=== PATIENT | female | born 1960 | race Caucasian/White ===

== ENCOUNTER → 2016-12-07 | Outpatient (REF) | payer BC, MEDICARE ==
[~2016-12-07] MED LIST: /PROM25SU PO; BACT800T5 PO; BENI20TA11 OR; BRIN1TAB3; CLON1TAB; FIORICET OR; HYGROTON OR; LANS30CA; MAGN500T2 OR; NICO21DI4 TD; PREVACID PO; SUMATRIPTAN SUBQ; WELL100T OR; XANA0.5T OR; ZOLO50TA OR; [UNRECOGNIZED DRUG - OTHER] OR; [UNRECOGNIZED DRUG - OTHER] PO; [UNRECOGNIZED DRUG - OTHER] SUBQ; calcium chews PO; chlorthalidone; propanolol PO
== END ==
LOC: M SFHCPLAZ 11:14
PROVIDERS: ATTEND Family Medicine
DX: L57.0 Actinic keratosis (principal)

== ENCOUNTER 2017-01-23 09:13 | Emergency (ER) | payer BC, MEDICARE ==
[~2017-01-23] VITALS: Ht 170.2 cm; Wt 54.5 kg
[~2017-01-23 09:13] MED LIST changes: -BACT800T5 PO; -BRIN1TAB3; -CLON1TAB; -LANS30CA
[2017-01-23] MEDS ORDERED: LANS30CA (09:24)
[2017-01-23] MEDS ORDERED: CLON1TAB PO (09:24)
[2017-01-23] MEDS ORDERED: BRIN1TAB3 (09:24)
[2017-01-23] MEDS ORDERED: ONDANSETRON 4MG/2ML VIAL (J2405) IV ONE ×2 (09:45→10:00)
[2017-01-23] MEDS ORDERED: NS 1,000 ML IV ONE ×2 (09:45→12:30)
[2017-01-23 10:16] LABS: MEAN CORPUSCULAR HEMOGLOBIN 30.6 pg (27.0-33.0); MEAN CORPUSCULAR HGB CONC 34.7 g/dl (32.0-36.5); MEAN CORPUSCULAR VOLUME 88.1 fl (80.0-96.0); RED CELL DISTRIBUTION WIDTH 13.2 % (11.5-14.5)
[2017-01-23 10:38] LABS: ALBUMIN 3.7 GM/DL (3.2-5.2); ALBUMIN/GLOBULIN RATIO 1.12 (1.00-1.93); ALKALINE PHOSPHATASE 72 U/L (45-117); ALT/SGPT 32 U/L (12-78); ANION GAP 8 MEQ/L (8-16); AST/SGOT 54 U/L (15-37); BILIRUBIN,TOTAL 0.5 MG/DL (0.2-1.0); BLOOD UREA NITROGEN 11 MG/DL (7-18); CALCIUM LEVEL 8.5 MG/DL (8.5-10.1); CARBON DIOXIDE LEVEL 23 MEQ/L (21-32); CHLORIDE LEVEL 105 MEQ/L (98-107); CREATININE FOR GFR 0.86 MG/DL (0.55-1.02); GLOMERULAR FILTRATION RATE > 60.0 (>51); GLUCOSE, FASTING 120 MG/DL (70-105); POTASSIUM SERUM 3.4 MEQ/L (3.5-5.1); SODIUM LEVEL 136 MEQ/L (136-145)
[2017-01-23 11:06] LABS: ANISOCYTOSIS 1+; EOSINOPHILS 1 % (0-5)
--- NOTE | 2017-01-23 11:13 | REP ---
REASON: Headache. COMPARISON: 07/24/2011. There is a subtle focal area of decreased density seen in the deep white matter of the left frontal lobe but this is essentially unchanged compared to the prior exam, although better imaged using today's technology compared to the prior exams. The ventricles and sulci are unchanged remaining within normal limits. There is no evidence of any acute intracranial hemorrhagic or nonhemorrhagic event. There is no shift of the midline structures. There are no extra-axial fluid collections. There is no skull fracture. The imaged paranasal sinuses and mastoid air cells are clear. There is no posterior fossa abnormality. IMPRESSION: No evidence of acute disease. Findings as described above. Signed by Geronimo Mack DO 01/23/2017 11:22 A
[2017-01-23] MEDS ORDERED: KETOROLAC 30 MG/ML VIAL (J1885) IV ONE (11:15)
[2017-01-23] MEDS ORDERED: NEOSPORIN TOP OINT 15GM TOP ONE (12:15)
[2017-01-23] MEDS ORDERED: IBUPROFEN 400 MG TAB PO ONE (12:15)
[2017-01-23] MEDS ORDERED: ACETAMINOPHEN 325 MG TAB PO ONE (12:15)
[2017-01-23] MEDS ORDERED: BACTRIM 160MG/800MG DS TAB PO ONE (12:30)
[2017-01-23 13:22] VITALS: BP 143/83
[2017-01-23] MEDS ORDERED: BACT800T5 PO (13:39)
--- NOTE | 2017-01-23 14:16 | REP ---
REASON: Cough. COMPARISON: 07/24/2011 The lung palomo and cardiomediastinal silhouette are unchanged. There are no acute patchy parenchymal opacities or pleural effusions. The heart is not enlarged. Chronic change is seen involving the imaged spine. There are multiple grade 1 and grade 2 upper thoracic vertebral body compression fractures, the age of which cannot be determined by this exam. IMPRESSION: No evidence of acute cardiopulmonary disease but other findings as described above. Signed by Geronimo Mack DO 01/23/2017 02:59 P
--- NOTE | 2017-01-23 14:27 | REP ---
Reason for the noncontrast CT of the abdomen and pelvis is pain across the back. COMPARISON: None. The lung bases are clear. Limited evaluation of the solid intra-abdominal organs and gallbladder show no gross abnormalities. Limited evaluation of the pancreas and adrenal glands show no gross abnormalities or significant findings. There is no nephroureterolithiasis, hydronephrosis, or hydroureter. There are no urinary bladder calcifications. There are pelvic phleboliths. There is no free fluid or free air in the abdomen or pelvis. Limited evaluation of the intra-abdominal and intrapelvic bowel loops and their mesenteries show no gross abnormalities. There is no evidence of free intra-abdominal or intrapelvic fluid. Bone window technique through the examination shows chronic spinal degenerative changes and suspected bony demineralization. IMPRESSION: There is no evidence of acute intra-abdominal or intrapelvic disease with findings and limitations as described above. Signed by Geronimo Mack DO 01/23/2017 02:59 P
--- NOTE | 2017-01-24 12:34 | ECGEPIP ---
Stationary ECG Study [facility] - ED Test Date: 2017-01-23 Pat Name: JAVID FERRELL Department: Room: - Gender: F Academic Associate: JT : 1960 Requested By: JAVIER Byrne PA-C Order Number: [id number] Reading MD: Rebecca Mcmanus Measurements Intervals [place] Rate: 86 P: 38 DE: 120 QRS: 63 QRSD: 85 T: 62 QT: 352 QTc: 423 Interpretive Statements SINUS RHYTHM Electronically Signed On 01-24-2017 12:34:30 EDT by Rebecca Mcmanus
== END 2017-01-23 14:01 | disposition home or self-care (01) ==
LOC: M ED 09:13
DX: N39.0 Urinary tract infection, site not specified (principal); R51 Headache; R56.9 Unspecified convulsions; Q04.9 Congenital malformation of brain, unspecified; K21.9 Gastro-esophageal reflux disease without esophagitis; M79.9 Soft tissue disorder, unspecified; Z79.899 Other long term (current) drug therapy; Z88.8 Allergy status to other drugs, medicaments and biological substances
CPT/HCPCS: 70450; 71020; 74176; 80053; 81001; 83605; 85007; 85027; 93005; 96361; 96374; 96375; 99284; J1885; J2405; J3360

== ENCOUNTER 2017-02-26 09:52 | Emergency (ER) | payer MEDICARE ==
[~2017-02-26] VITALS: Ht 170.2 cm; Wt 54.5 kg
[~2017-02-26 09:52] MED LIST changes: +BACT800T5 PO; +BRIN1TAB3; +CLON1TAB PO; +LANS30CA
[2017-02-26] MEDS ORDERED: CYCL10TA PO (10:08)
[2017-02-26] MEDS ORDERED: diphenhydrAMINE INJ 50MG/ML VIAL (J1200) IV STA (10:59)
[2017-02-26] MEDS ORDERED: ONDANSETRON 4MG/2ML VIAL (J2405) IV ONE (11:00)
[2017-02-26] MEDS ORDERED: NS 500 ML IV ONE (11:00)
[2017-02-26] MEDS ORDERED: KETOROLAC 30 MG/ML VIAL (J1885) IV ONE (11:00)
[2017-02-26] MEDS ORDERED: MORPHINE 4 MG/ML 1ML SYRINGE IV ONE (13:15)
--- NOTE | 2017-02-26 14:16 | REP ---
CT Head without contrast HISTORY: Headache COMPARISON: 01/23/2017 An area of decreased attenuation is present in the periventricular white matter of the left frontal lobe. This represents small-vessel ischemic disease. There is no intraparenchymal hemorrhage, acute infarct, mass or midline shift. The ventricular system is normal in appearance. There is no extra cerebral collection. There is no fracture. The visualized sinuses are clear. IMPRESSION: Minimal small vessel ischemic disease. Signed by Hemant Cabrera MD 02/26/2017 02:07 P
[2017-02-26] MEDS ORDERED: PROMETHAZINE INJ 25 MG/ML VIAL (J2550) IV ONE (14:45)
[2017-02-26] MEDS ORDERED: diphenhydrAMINE INJ 50MG/ML VIAL (J1200) IV ONE (14:45)
[2017-02-26] MEDS ORDERED: PERCOCET 5MG/325MG TAB PO ONE (16:15)
[2017-02-26] MEDS ORDERED: PHEN1SUP6 PR (16:15)
[2017-02-26] MEDS ORDERED: PROMETHAZINE 25 MG TAB PO ONE (16:15)
[2017-02-26 16:28] VITALS: BP 127/73
== END 2017-02-26 16:42 | disposition home or self-care (01) ==
LOC: M ED 09:52
DX: G43.119 Migraine with aura, intractable, without status migrainosus (principal); F41.9 Anxiety disorder, unspecified; F17.200 Nicotine dependence, unspecified, uncomplicated; Z79.899 Other long term (current) drug therapy; Z88.8 Allergy status to other drugs, medicaments and biological substances
CPT/HCPCS: 70450; 96374; 96375; 96376; 99284; J1200; J1885; J2405

== ENCOUNTER → 2017-03-16 | Outpatient (REF) | payer MEDICARE ==
[~2017-03-16] MED LIST changes: +CYCL10TA PO; +PHEN1SUP6 PR
== END ==
LOC: M LAB REF 18:25
PROVIDERS: ATTEND Physician Assistant Medical
DX: R30.0 Dysuria (principal)

== ENCOUNTER 2017-05-20 10:32 | Emergency (ER) | payer MEDICARE ==
[2017-05-20] MEDS: ADACEL/BOOSTRIX VACCINE (DIPHTH/PERTUSS/ACELL/TETANUS)0.5ML SYR (90715) IM (12:05)
[2017-05-20] MEDS ORDERED: KETOROLAC 30 MG/ML VIAL (J1885) IV (13:30)
[2017-05-20] MEDS: KETOROLAC TROMETHAMINE 10 MG TAB PO (13:39)
== END 2017-05-20 14:13 | disposition home or self-care (01) ==
LOC: M ED 10:32
DX: S06.5X3A Traumatic subdural hemorrhage with loss of consciousness of 1 hour to 5 hours 59 minutes, initial encounter (principal); I10 Essential (primary) hypertension; Z87.891 Personal history of nicotine dependence; W01.198A Fall on same level from slipping, tripping and stumbling with subsequent striking against other object, initial encounter; Y92.099 Unspecified place in other non-institutional residence as the place of occurrence of the external cause; Y93.01 Activity, walking, marching and hiking
CPT/HCPCS: 90715

== ENCOUNTER → 2017-08-27 | Outpatient (CLI) | payer MEDICARE ==
[2017-08-27 13:13] LABS: BASO % 0.5 % (0.0-1.0); EOS # 0.2 10^3/uL (0.0-0.50); EOS % 2.4 % (0.0-3.0); HEMATOCRIT 35.1 % (36.0-47.0); HEMOGLOBIN 11.9 g/dl (12.0-15.5); IMMATURE GRANULOCYTE % 0.5 % (0-3.0); LYMPH % 36.9 % (24.0-44.0); MEAN CORPUSCULAR HEMOGLOBIN 30.1 pg (27.0-33.0); MEAN CORPUSCULAR HGB CONC 33.9 g/dl (32.0-36.5); MEAN CORPUSCULAR VOLUME 88.6 fl (80.0-96.0); MONO # 0.9 10^3/uL (0.0-0.8); MONO % 11.3 % (0.0-5.0); NEUTROPHILS # 3.9 10^3/uL (1.8-7.7); NEUTROPHILS % 48.4 % (36.0-66.0); PLATELET COUNT, AUTOMATED 279 10^3/uL (150-450); RED BLOOD COUNT 3.96 10^6/uL (4.00-5.40); RED CELL DISTRIBUTION WIDTH 14.3 % (11.5-14.5); WHITE BLOOD COUNT 8.1 10^3/uL (4.0-10.0)
[2017-08-27 13:24] LABS: INR 0.91; PROTHROMBIN TIME 12.3 SECONDS (12.4-14.5)
[2017-08-27 13:25] LABS: PARTIAL THROMBOPLASTIN TIME 32.8 SECONDS (26.8-37.9)
[2017-08-27 13:36] LABS: ALBUMIN 3.7 GM/DL (3.2-5.2); ALBUMIN/GLOBULIN RATIO 1.28 (1.00-1.93); ALKALINE PHOSPHATASE 110 U/L (45-117); ALT/SGPT 108 U/L (12-78); ANION GAP 5 MEQ/L (8-16); AST/SGOT 67 U/L (7-37); BILIRUBIN,TOTAL 0.3 MG/DL (0.2-1.0); BLOOD UREA NITROGEN 12 MG/DL (7-18); CALCIUM LEVEL 8.7 MG/DL (8.5-10.1); CARBON DIOXIDE LEVEL 30 MEQ/L (21-32); CHLORIDE LEVEL 108 MEQ/L (98-107); CREATININE FOR GFR 0.93 MG/DL (0.55-1.30); GLOMERULAR FILTRATION RATE > 60.0 (>51); GLUCOSE, FASTING 86 MG/DL (70-100); NT-PRO BNP 297 PG/ML (<125); POTASSIUM SERUM 4.5 MEQ/L (3.5-5.1); SODIUM LEVEL 143 MEQ/L (136-145); TOTAL PROTEIN 6.6 GM/DL (6.4-8.2)
[2017-08-29 00:06] LABS: Lyme Disease IgG/IgM Antibodie <0.91 ISR (0.00-0.90); Lyme Disease IgM Ab Quantitati <0.80 index (0.00-0.79)
== END ==
LOC: M ADAMS 09:47
DX: R60.9 Edema, unspecified (principal); L30.9 Dermatitis, unspecified
CPT/HCPCS: 80053

== ENCOUNTER 2017-08-28 17:52 | Emergency (ER) | payer MEDICARE ==
[2017-08-28] MEDS: ONDANSETRON 4MG/2ML VIAL (J2405) IV (19:32)
[2017-08-28] MEDS: MORPHINE 4 MG/ML 1ML VIAL/SYRINGE (J2270) IV (19:32)
[2017-08-28] MEDS: NS 1,000 ML IV (19:32)
[2017-08-28 19:37] LABS: BASO % 0.5 % (0.0-1.0); EOS # 0.1 10^3/uL (0.0-0.50); EOS % 1.9 % (0.0-3.0); HEMATOCRIT 32.6 % (36.0-47.0); HEMOGLOBIN 11.2 g/dl (12.0-15.5); IMMATURE GRANULOCYTE % 0.3 % (0-3.0); LYMPH # 2.9 10^3/uL (1.5-4.5); LYMPH % 38.8 % (24.0-44.0); MEAN CORPUSCULAR HEMOGLOBIN 30.2 pg (27.0-33.0); MEAN CORPUSCULAR HGB CONC 34.4 g/dl (32.0-36.5); MEAN CORPUSCULAR VOLUME 87.9 fl (80.0-96.0); MONO # 0.8 10^3/uL (0.0-0.8); MONO % 10.7 % (0.0-5.0); NEUTROPHILS # 3.6 10^3/uL (1.8-7.7); NEUTROPHILS % 47.8 % (36.0-66.0); PLATELET COUNT, AUTOMATED 270 10^3/uL (150-450); RED BLOOD COUNT 3.71 10^6/uL (4.00-5.40); RED CELL DISTRIBUTION WIDTH 13.9 % (11.5-14.5); WHITE BLOOD COUNT 7.5 10^3/uL (4.0-10.0)
[2017-08-28 19:51] LABS: INR 0.99; PROTHROMBIN TIME 13.2 SECONDS (12.4-14.5)
[2017-08-28 19:52] LABS: PARTIAL THROMBOPLASTIN TIME 31.6 SECONDS (26.8-37.9)
[2017-08-28 20:02] LABS: ALBUMIN 3.5 GM/DL (3.2-5.2); ALBUMIN/GLOBULIN RATIO 1.25 (1.00-1.93); ALKALINE PHOSPHATASE 111 U/L (45-117); ALT/SGPT 76 U/L (12-78); ANION GAP 5 MEQ/L (8-16); AST/SGOT 43 U/L (7-37); BILIRUBIN,DIRECT < 0.1 MG/DL (0.0-0.2); BILIRUBIN,TOTAL 0.2 MG/DL (0.2-1.0); BLOOD UREA NITROGEN 11 MG/DL (7-18); C REACTIVE PROTEIN QUANTITATIV 0.59 MG/DL (0.00-0.30); CALCIUM LEVEL 8.1 MG/DL (8.5-10.1); CARBON DIOXIDE LEVEL 29 MEQ/L (21-32); CHLORIDE LEVEL 108 MEQ/L (98-107); CPK CREATINE PHOSPHOKINASE 369 U/L (26-192); GLOMERULAR FILTRATION RATE > 60.0 (>51); GLUCOSE, FASTING 67 MG/DL (70-100); SODIUM LEVEL 142 MEQ/L (136-145); TOTAL PROTEIN 6.3 GM/DL (6.4-8.2)
[2017-08-28 20:04] LABS: ERYTHROCYTE SEDIMENTATION RATE 12 mm/hr (0-30)
[2017-08-28] MEDS: NORCO 5/325MG TABLET (BULK FOR ED) PO (21:13)
== END 2017-08-28 21:17 | disposition home or self-care (01) ==
LOC: M ED 17:52
DX: R23.3 Spontaneous ecchymoses (principal); I10 Essential (primary) hypertension; K21.9 Gastro-esophageal reflux disease without esophagitis; F41.9 Anxiety disorder, unspecified; F17.210 Nicotine dependence, cigarettes, uncomplicated; G43.909 Migraine, unspecified, not intractable, without status migrainosus; R56.9 Unspecified convulsions; Z98.890 Other specified postprocedural states; Z79.899 Other long term (current) drug therapy
CPT/HCPCS: J2270

== ENCOUNTER 2017-08-30 10:04 | Emergency (ER) | payer MEDICARE ==
[2017-08-30 11:42] LABS: BASO % 0.4 % (0.0-1.0); EOS # 0.2 10^3/uL (0.0-0.50); EOS % 2.4 % (0.0-3.0); HEMATOCRIT 34.6 % (36.0-47.0); HEMOGLOBIN 11.6 g/dl (12.0-15.5); IMMATURE GRANULOCYTE % 0.1 % (0-3.0); LYMPH # 3.4 10^3/uL (1.5-4.5); LYMPH % 48.4 % (24.0-44.0); MEAN CORPUSCULAR HEMOGLOBIN 30.1 pg (27.0-33.0); MEAN CORPUSCULAR HGB CONC 33.5 g/dl (32.0-36.5); MEAN CORPUSCULAR VOLUME 89.9 fl (80.0-96.0); MONO # 0.9 10^3/uL (0.0-0.8); MONO % 12.2 % (0.0-5.0); NEUTROPHILS # 2.6 10^3/uL (1.8-7.7); NEUTROPHILS % 36.5 % (36.0-66.0); PLATELET COUNT, AUTOMATED 294 10^3/uL (150-450); RED BLOOD COUNT 3.85 10^6/uL (4.00-5.40); RED CELL DISTRIBUTION WIDTH 14.2 % (11.5-14.5); WHITE BLOOD COUNT 7.1 10^3/uL (4.0-10.0)
[2017-08-30 11:52] LABS: INR 0.88
[2017-08-30 12:12] LABS: ALBUMIN 3.6 GM/DL (3.2-5.2); ALKALINE PHOSPHATASE 130 U/L (45-117); ALT/SGPT 64 U/L (12-78); ANION GAP 4 MEQ/L (8-16); AST/SGOT 46 U/L (7-37); BILIRUBIN,DIRECT < 0.1 MG/DL (0.0-0.2); BILIRUBIN,TOTAL 0.2 MG/DL (0.2-1.0); BLOOD UREA NITROGEN 7 MG/DL (7-18); CALCIUM LEVEL 8.1 MG/DL (8.5-10.1); CARBON DIOXIDE LEVEL 30 MEQ/L (21-32); CHLORIDE LEVEL 108 MEQ/L (98-107); CPK CREATINE PHOSPHOKINASE 390 U/L (26-192); CREATININE FOR GFR 0.84 MG/DL (0.55-1.30); GLOMERULAR FILTRATION RATE > 60.0 (>51); GLUCOSE, FASTING 57 MG/DL (70-100); POTASSIUM SERUM 4.1 MEQ/L (3.5-5.1); SODIUM LEVEL 142 MEQ/L (136-145); TOTAL PROTEIN 6.6 GM/DL (6.4-8.2)
[2017-08-30 12:15] LABS: ERYTHROCYTE SEDIMENTATION RATE 17 mm/hr (0-30)
== END 2017-08-30 13:14 | disposition home or self-care (01) ==
LOC: M ED 10:04
DX: R23.3 Spontaneous ecchymoses (principal); M79.89 Other specified soft tissue disorders; I10 Essential (primary) hypertension; G40.909 Epilepsy, unspecified, not intractable, without status epilepticus; G43.909 Migraine, unspecified, not intractable, without status migrainosus; F31.9 Bipolar disorder, unspecified; Z88.8 Allergy status to other drugs, medicaments and biological substances; Z88.1 Allergy status to other antibiotic agents; Z79.899 Other long term (current) drug therapy
CPT/HCPCS: 93970

== ENCOUNTER 2017-09-02 00:25 | Emergency (ER) | payer MEDICARE ==
[2017-09-02] MEDS: ACETAMINOPHEN TAB 650MG DOSE (2X325MG) PO ×2 (02:20)
== END 2017-09-02 02:37 | disposition home or self-care (01) ==
LOC: M ED 00:25
DX: R21 Rash and other nonspecific skin eruption (principal); F31.9 Bipolar disorder, unspecified; G43.909 Migraine, unspecified, not intractable, without status migrainosus; F17.200 Nicotine dependence, unspecified, uncomplicated; Z79.899 Other long term (current) drug therapy; Z88.8 Allergy status to other drugs, medicaments and biological substances
CPT/HCPCS: 36415; G0463

== ENCOUNTER → 2018-04-21 | Outpatient (REF) | payer MEDICARE ==
[~2018-04-21] MED LIST changes: +ALLE180T33 PO; +BUPR300T34 PO; -CLON1TAB PO; +CLON1TAB8 PO; +FISH100049 PO; +LATU40TA PO; +MULT1TAB18 PO; +NORCOTAB PO; +ONDA8TAB7 PO; +VITA500046 PO; +ZOLM2.5T2 PO
[2018-04-21 18:54] LABS: BASO # 0.1 10^3/uL (0.0-0.2); BASO % 0.5 % (0.0-1.0); EOS # 0.1 10^3/uL (0.0-0.50); EOS % 0.3 % (0.0-3.0); HEMATOCRIT 41.1 % (36.0-47.0); HEMOGLOBIN 14.3 g/dl (12.0-15.5); LYMPH # 2.8 10^3/uL (1.5-4.5); LYMPH % 18.6 % (24.0-44.0); MEAN CORPUSCULAR HEMOGLOBIN 30.1 pg (27.0-33.0); MEAN CORPUSCULAR HGB CONC 34.8 g/dl (32.0-36.5); MEAN CORPUSCULAR VOLUME 86.5 fl (80.0-96.0); MONO # 1.4 10^3/uL (0.0-0.8); MONO % 9.1 % (0.0-5.0); NEUTROPHILS # 10.8 10^3/uL (1.8-7.7); NEUTROPHILS % 70.9 % (36.0-66.0); PLATELET COUNT, AUTOMATED 448 10^3/uL (150-450); RED BLOOD COUNT 4.75 10^6/uL (4.00-5.40); WHITE BLOOD COUNT 15.3 10^3/uL (4.0-10.0)
[2018-04-21 19:17] LABS: ALBUMIN 3.9 GM/DL (3.2-5.2); BILIRUBIN,TOTAL 0.3 MG/DL (0.2-1.0); CALCIUM LEVEL 8.9 MG/DL (8.5-10.1); CREATININE FOR GFR 1.23 MG/DL (0.55-1.30); GLOMERULAR FILTRATION RATE 47.7 (>51); TOTAL PROTEIN 6.9 GM/DL (6.4-8.2)
== END ==
LOC: M SFHCPLAZ 15:03
PROVIDERS: ATTEND Family Medicine
DX: R19.7 Diarrhea, unspecified (principal); E87.6 Hypokalemia

== ENCOUNTER → 2018-04-26 | Outpatient (REF) | payer MEDICARE ==
[2018-04-26 18:20] LABS: HEMATOCRIT 36.6 % (36.0-47.0); HEMOGLOBIN 12.7 g/dl (12.0-15.5); MEAN CORPUSCULAR HEMOGLOBIN 30.6 pg (27.0-33.0); MEAN CORPUSCULAR HGB CONC 34.7 g/dl (32.0-36.5); MEAN CORPUSCULAR VOLUME 88.2 fl (80.0-96.0); PLATELET COUNT, AUTOMATED 386 10^3/uL (150-450); RED BLOOD COUNT 4.15 10^6/uL (4.00-5.40); WHITE BLOOD COUNT 7.8 10^3/uL (4.0-10.0)
[2018-04-26 18:36] LABS: BLOOD UREA NITROGEN 6 MG/DL (7-18); C REACTIVE PROTEIN QUANTITATIV 2.24 MG/DL (0.00-0.30); CALCIUM LEVEL 8.6 MG/DL (8.5-10.1); CARBON DIOXIDE LEVEL 25 MEQ/L (21-32); CHLORIDE LEVEL 105 MEQ/L (98-107); CREATININE FOR GFR 0.87 MG/DL (0.55-1.30); GLOMERULAR FILTRATION RATE > 60.0 (>51); GLUCOSE, FASTING 86 MG/DL (70-100); POTASSIUM SERUM 3.3 MEQ/L (3.5-5.1); SODIUM LEVEL 138 MEQ/L (136-145)
[2018-04-26 19:08] LABS: ERYTHROCYTE SEDIMENTATION RATE 16 mm/hr (0-30)
== END ==
LOC: M SFHCPLAZ 14:37
PROVIDERS: ATTEND Family Medicine
DX: R19.7 Diarrhea, unspecified (principal); N17.9 Acute kidney failure, unspecified

== ENCOUNTER → 2018-05-06 | Outpatient (CLI) | payer MEDICARE ==
--- NOTE | 2018-05-06 20:55 | REP ---
RIGHT KNEE, COMPLETE: 05/06/2018. Clinical history: Contusion right knee. Fell after tripping over her dog. Findings: Five views are provided. Tibial spines with small spurs and with minimal spurs medial and lateral joint margins as well as patellar articular margins. No joint space narrowing of the medial or lateral compartments. There is slight narrowing of the medial facet of the patellofemoral joint. No patellar subluxation or dislocation and no patellar fracture. Bone island in the medial femoral condyle. A fabella posterior to the knee is seen. I do not see definite suprapatellar effusion, fracture, avulsion or other acute finding. Impression: 1. Mild tricompartment osteoarthritis without fracture, avulsion, subluxation, joint effusion or loose body. Electronically Signed by Jason Alfred MD 05/07/2018 01:17 P
== END ==
LOC: M ADAMS 17:11
PROVIDERS: ATTEND Physician Assistant
DX: M17.11 Unilateral primary osteoarthritis, right knee (principal); S80.01XA Contusion of right knee, initial encounter; X58.XXXA Exposure to other specified factors, initial encounter; Y92.9 Unspecified place or not applicable

== ENCOUNTER → 2018-05-24 | Outpatient (REF) | payer MEDICARE ==
[2018-05-24 13:43] LABS: HEMATOCRIT 34.9 % (36.0-47.0); HEMOGLOBIN 11.7 g/dl (12.0-15.5); MEAN CORPUSCULAR HEMOGLOBIN 30.9 pg (27.0-33.0); MEAN CORPUSCULAR HGB CONC 33.5 g/dl (32.0-36.5); MEAN CORPUSCULAR VOLUME 92.1 fl (80.0-96.0); PLATELET COUNT, AUTOMATED 326 10^3/uL (150-450); RED BLOOD COUNT 3.79 10^6/uL (4.00-5.40); WHITE BLOOD COUNT 11.4 10^3/uL (4.0-10.0)
[2018-05-24 14:16] LABS: ALT/SGPT 25 U/L (12-78); BLOOD UREA NITROGEN 11 MG/DL (7-18); CALCIUM LEVEL 8.2 MG/DL (8.5-10.1); CARBON DIOXIDE LEVEL 24 MEQ/L (21-32); CHLORIDE LEVEL 109 MEQ/L (98-107); CREATININE FOR GFR 0.85 MG/DL (0.55-1.30); GLOMERULAR FILTRATION RATE > 60.0 (>51); GLUCOSE, FASTING 88 MG/DL (70-100); POTASSIUM SERUM 4.5 MEQ/L (3.5-5.1); SODIUM LEVEL 142 MEQ/L (136-145)
[2018-05-24 14:17] LABS: ALBUMIN 3.8 GM/DL (3.2-5.2); BILIRUBIN,TOTAL 0.3 MG/DL (0.2-1.0); TOTAL PROTEIN 6.2 GM/DL (6.4-8.2)
== END ==
LOC: M SFHCPLAZ 11:46
PROVIDERS: ATTEND Family Medicine
DX: G45.4 Transient global amnesia (principal); R41.0 Disorientation, unspecified

== ENCOUNTER 2018-05-28 16:10 | Emergency (ER) | payer MEDICARE ==
[~2018-05-28] VITALS: Ht 167.6 cm; Wt 54.5 kg
[2018-05-28] MEDS ORDERED: PREG50CA (16:21)
[2018-05-28] MEDS ORDERED: BENA25CA4 PO (16:21)
[2018-05-28] MEDS ORDERED: BRIN1TAB3 (16:21)
[2018-05-28] MEDS ORDERED: CYCL10TA (16:21)
[2018-05-28] MEDS ORDERED: POTA1TAB23 (16:21)
[2018-05-28] MEDS ORDERED: IBUP80TA PO (18:52)
[2018-05-28] MEDS ORDERED: GABA-845 PO (18:52)
[2018-05-28] MEDS ORDERED: ENDO5TAB PO (18:53)
[2018-05-28] MEDS ORDERED: GABAPENTIN 300 MG CAP PO ONE (19:00)
[2018-05-28 19:07] VITALS: BP 134/78
== END 2018-05-28 19:19 | disposition home or self-care (01) ==
LOC: M ED 16:10
DX: R10.2 Pelvic and perineal pain (principal); M79.651 Pain in right thigh; M79.652 Pain in left thigh; M79.661 Pain in right lower leg; M79.662 Pain in left lower leg; M79.671 Pain in right foot; M79.672 Pain in left foot; I10 Essential (primary) hypertension; G43.909 Migraine, unspecified, not intractable, without status migrainosus; K21.9 Gastro-esophageal reflux disease without esophagitis; F31.9 Bipolar disorder, unspecified; Z87.891 Personal history of nicotine dependence; Z82.0 Family history of epilepsy and other diseases of the nervous system; Z88.1 Allergy status to other antibiotic agents; Z88.8 Allergy status to other drugs, medicaments and biological substances; Z79.899 Other long term (current) drug therapy

== ENCOUNTER → 2018-06-04 | Outpatient (CLI) | payer MEDICARE ==
[~2018-06-04] MED LIST changes: +BENA25CA4 PO; +CYCL10TA; +ENDO5TAB PO; +GABA-845 PO; +IBUP80TA PO; +POTA1TAB23; +PREG50CA
--- NOTE | 2018-06-06 07:44 | REP ---
MRI BRAIN WITHOUT CONTRAST: 06/04/2018. Comparison: MRI brain 07/25/2011; CT brain 05/20/2017, 02/26/2017. Clinical history: Transient global amnesia. Confusion. 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 Technique: Sagittal T1 with axial T1, T2, FLAIR, gradient-echo and diffusion weighted images with ADC mapping sequence. Findings: Lateral ventricles are midline, symmetric and without dilatation or displacement. There is no significant atrophy or sulcal prominence. Third and fourth ventricles were unremarkable. There is some periatrial white matter change on the left and adjacent to the frontal horn of the left lateral ventricle is a 13 mm zone of hyperintense T2 and FLAIR signal. This is not reliably seen on the previous CT. There are a few other periventricular deep central hyperintense T2 signal foci in both hemispheres, much smaller. There is a small hyperintense focus on T2 in the left basal ganglia, hypointense on T1 suggesting a small dilated perivascular space of Virchow or tiny old lacunar infarct. This is visible on the previous CT, stable. On the diffusion weighted images and ADC mapping sequences, there is no evidence of restricted water diffusion or acute ischemia in this region or elsewhere in the brain. I do not see evidence of hemorrhage on the gradient echo sequence. Cortical stripe is preserved. There is no vascular territory infarct, hemorrhage, mass or mass effect. No acute extra-axial fluid collection. Slight prominence of the subarachnoid space in the frontal pole left more than right. No mass or mass effect. Brainstem and cerebellum intact. The seventh/eighth cranial nerve complexes symmetric and normal. Visualized mastoids and sinuses are clear except for a few small ethmoid air cells with some mucosal thickening. Orbits and contents symmetric and normal. The corpus callosum, optic chiasm and pituitary were intact. There is some cerebellar tonsillar ectopia as on previous MRI of 07/25/2011 and unchanged. Orbits and contents symmetric and normal. Impression: 1. Some mild small vessel ischemic changes similar to previous study with no evidence of acute infarct, hemorrhage, restricted water diffusion or acute ischemia on diffusion weighted images. 2. No evidence of intracranial hemorrhage. Mild prominence of the subarachnoid space adjacent the frontal poles left greater than right, unchanged. 3. Stable exam without acute finding. Electronically Signed by Jason Alfred MD 06/06/2018 09:24 A
== END ==
LOC: M RAD 14:20
PROVIDERS: ATTEND Family Medicine
DX: G45.4 Transient global amnesia (principal); R41.0 Disorientation, unspecified

== ENCOUNTER 2018-06-06 11:09 | Emergency (ER) | payer MEDICARE ==
[~2018-06-06] VITALS: Ht 167.6 cm; Wt 64.9 kg
[2018-06-06 13:52] VITALS: BP 117/70
== END 2018-06-06 13:59 | disposition home or self-care (01) ==
LOC: M ED 11:09
DX: R60.0 Localized edema (principal); T42.6X5A Adverse effect of other antiepileptic and sedative-hypnotic drugs, initial encounter; I10 Essential (primary) hypertension; F32.9 Major depressive disorder, single episode, unspecified; F41.9 Anxiety disorder, unspecified; G43.909 Migraine, unspecified, not intractable, without status migrainosus; K21.9 Gastro-esophageal reflux disease without esophagitis; F17.200 Nicotine dependence, unspecified, uncomplicated; Z88.8 Allergy status to other drugs, medicaments and biological substances; Z88.1 Allergy status to other antibiotic agents; Z79.899 Other long term (current) drug therapy

== ENCOUNTER → 2018-06-07 | Outpatient (REF) | payer MEDICARE ==
[2018-06-07 17:02] LABS: IONIZED CALCIUM 4.5 MG/DL (4.5-5.3)
[2018-06-07 17:20] LABS: MAGNESIUM LEVEL 2.2 MG/DL (1.8-2.4); PHOSPHORUS LEVEL 3.7 MG/DL (2.5-4.9)
[2018-06-07 17:21] LABS: ALBUMIN 3.4 GM/DL (3.2-5.2); ALT/SGPT 30 U/L (12-78); BILIRUBIN,TOTAL 0.2 MG/DL (0.2-1.0); BLOOD UREA NITROGEN 7 MG/DL (7-18); CALCIUM LEVEL 8.1 MG/DL (8.5-10.1); CARBON DIOXIDE LEVEL 27 MEQ/L (21-32); CHLORIDE LEVEL 106 MEQ/L (98-107); CPK CREATINE PHOSPHOKINASE 582 U/L (26-192); CREATININE FOR GFR 0.89 MG/DL (0.55-1.30); GLOMERULAR FILTRATION RATE > 60.0 (>51); GLUCOSE, FASTING 100 MG/DL (70-100); POTASSIUM SERUM 4.6 MEQ/L (3.5-5.1); SODIUM LEVEL 140 MEQ/L (136-145)
[2018-06-07 17:22] LABS: BASO % 0.5 % (0.0-1.0); EOS # 0.4 10^3/uL (0.0-0.50); EOS % 5.1 % (0.0-3.0); HEMATOCRIT 30.7 % (36.0-47.0); HEMOGLOBIN 9.9 g/dl (12.0-15.5); LYMPH # 2.9 10^3/uL (1.5-4.5); LYMPH % 38.3 % (24.0-44.0); MEAN CORPUSCULAR HEMOGLOBIN 30.6 pg (27.0-33.0); MEAN CORPUSCULAR HGB CONC 32.2 g/dl (32.0-36.5); MEAN CORPUSCULAR VOLUME 94.8 fl (80.0-96.0); MONO # 0.8 10^3/uL (0.0-0.8); MONO % 10.7 % (0.0-5.0); NEUTROPHILS # 3.4 10^3/uL (1.8-7.7); NEUTROPHILS % 45.1 % (36.0-66.0); PLATELET COUNT, AUTOMATED 325 10^3/uL (150-450); RED BLOOD COUNT 3.24 10^6/uL (4.00-5.40); WHITE BLOOD COUNT 7.5 10^3/uL (4.0-10.0)
[2018-06-07 17:30] LABS: PTH INTACT 48.7 PG/ML (18.5-88.0)
== END ==
LOC: M SFHCPLAZ 15:01
PROVIDERS: ATTEND Family Medicine
DX: E83.51 Hypocalcemia (principal); R25.1 Tremor, unspecified

== ENCOUNTER → 2018-06-30 | Outpatient (CLI) | payer MEDICARE ==
--- NOTE | 2018-06-30 18:25 | REPMRS ---
Patient History The patient states she had a clinical breast exam in 06/2018. Patient is postmenopausal and is nulliparous. Family history of breast cancer at age 50 or over in maternal grandmother. Retro-pectoral implants in both breasts, 2000. Took estrogen for 7 months. Digital Woman Screen Mammo: June 30, 2018 - Exam #: [id number] Bilateral MLO, CC, CCID, and MLOID view(s) were taken. Technologist: Tania Pearson, Technologist Prior study comparison: July 04, 2015, digital woman screen mammo performed at [facility]. February 28, 2014, digital woman screen mammo performed at [facility]. FINDINGS: There are scattered fibroglandular densities. The visualized implant margins are smooth. Breast parenchymal density pattern is essentially symmetric. No dominant mass, clustered microcalcification, or archetectural distortion is evident on either side. 3-D tomosynthesis shows no additional findings. No significant changes when compared with prior studies. Assessment: BI-RADS/ACR category 2 mammogram. Benign Findings. Recommendation Routine screening mammogram of both breasts in 1 year (for women over age 40). Electronically Signed By: Jason Alfred MD 06/30/18 [id number]
== END ==
LOC: M WHC 14:25
PROVIDERS: ATTEND Family Medicine
DX: Z12.31 Encounter for screening mammogram for malignant neoplasm of breast (principal); Z78.0 Asymptomatic menopausal state; Z80.3 Family history of malignant neoplasm of breast; Z98.890 Other specified postprocedural states; Z92.23 Personal history of estrogen therapy

== ENCOUNTER → 2018-06-30 | Outpatient (REF) | payer MEDICARE ==
[2018-07-04 14:21] LABS: HPV HYBRID CAPTURE II Negative (Negative)
== END ==
LOC: M SFHCWAGY 14:44
PROVIDERS: ATTEND Nurse Practitioner Women's Health
DX: Z12.4 Encounter for screening for malignant neoplasm of cervix (principal)
CPT/HCPCS: 87624; G0123

== ENCOUNTER → 2018-07-10 | Outpatient (CLI) | payer MEDICARE ==
--- NOTE | 2018-07-11 07:13 | REP ---
LEFT ANKLE, FOUR VIEWS: Four views of the left ankle are performed. There is an oblique fracture of the distal fibula with adjacent soft-tissue swelling. There is lateral displacement of the distal fracture fragment. No other acute fracture or dislocation is seen. The ankle mortise appears anatomic. Electronically Signed by Brandt Perea MD 07/11/2018 09:21 A
== END ==
LOC: M ADAMS 11:12
PROVIDERS: ATTEND Physician Assistant Medical
DX: S82.432A Displaced oblique fracture of shaft of left fibula, initial encounter for closed fracture (principal); Y92.9 Unspecified place or not applicable; Y93.9 Activity, unspecified; Y99.9 Unspecified external cause status; X58.XXXA Exposure to other specified factors, initial encounter

== ENCOUNTER → 2018-08-23 | Outpatient (REF) | payer MEDICARE ==
[~2018-08-23] MED LIST changes: +HYDR-3715 PO; -NORCOTAB PO
[2018-08-23 13:37] LABS: BLOOD UREA NITROGEN 24 MG/DL (7-18); CALCIUM LEVEL 9.3 MG/DL (8.5-10.1); CARBON DIOXIDE LEVEL 26 MEQ/L (21-32); CHLORIDE LEVEL 107 MEQ/L (98-107); GLOMERULAR FILTRATION RATE > 60.0 (>51); GLUCOSE, FASTING 89 MG/DL (70-100); MAGNESIUM LEVEL 2.1 MG/DL (1.8-2.4); POTASSIUM SERUM 4.8 MEQ/L (3.5-5.1); SODIUM LEVEL 139 MEQ/L (136-145)
== END ==
LOC: M SFHCPLAZ 10:35
PROVIDERS: ATTEND Family Medicine
DX: E87.6 Hypokalemia (principal); E83.42 Hypomagnesemia

== ENCOUNTER → 2018-08-25 | Outpatient (CLI) | payer MEDICARE ==
[~2018-08-25] MED LIST changes: +CLON0.5T17 PO; +CLON0.5T8 PO; +NORC1TAB7 PO; +PREV30TA3 PO; +TRAZ-160 PO
--- NOTE | 2018-08-26 11:37 | REP ---
REASON: History of distal fibular fracture. COMPARISON: Pre-casted exam of 07/10/2018. The previously described distal fibular fracture is obscured by overlying casting material. The alignment appears near anatomical and essentially unchanged. This limited examination shows no acute fracture. Electronically Signed by Geronimo Mack DO 08/26/2018 02:41 P
--- NOTE | 2018-08-26 15:09 | REP ---
REASON FOR EXAM: History of lateral malleolar fracture. Not all of the foot was radiographed on all views and there is overlying casting material which obscures the bony detail to such a degree a fracture could be obscured. On the images provided there is no gross fracture involving the foot. There is a distal fibular fracture which was diagnosed on 07/10/2018. IMPRESSION: Findings and limitations as described above. Electronically Signed by Greonimo Mack DO 08/26/2018 03:21 P
== END ==
LOC: M ADAMS 14:46
PROVIDERS: ATTEND Physician Assistant
DX: S82.62XD Displaced fracture of lateral malleolus of left fibula, subsequent encounter for closed fracture with routine healing (principal); X58.XXXD Exposure to other specified factors, subsequent encounter

== ENCOUNTER 2018-08-28 12:22 | Emergency (ER) | payer MEDICARE ==
[~2018-08-28] VITALS: Ht 167.6 cm; Wt 69.9 kg
[~2018-08-28 12:22] MED LIST changes: -CLON0.5T17 PO; -CLON0.5T8 PO; -NORC1TAB7 PO; -PREV30TA3 PO; -TRAZ-160 PO
[2018-08-28] MEDS ORDERED: NORCO, ANEXSIA 5/325MG TABLET (HYDROcodone/ACETAMINOPHEN) PO ONE (12:45)
[2018-08-28] MEDS ORDERED: KETOROLAC 60 MG/2 ML VIAL (J1885) IM ONE (12:45)
[2018-08-28] MEDS ORDERED: CLON0.5T17 PO (12:50)
[2018-08-28] MEDS ORDERED: TRAZ-160 PO (12:50)
[2018-08-28] MEDS ORDERED: PREV30TA3 PO (12:50)
[2018-08-28] MEDS ORDERED: CLON0.5T8 PO (12:50)
[2018-08-28] MEDS ORDERED: NORC1TAB7 PO (13:54)
--- NOTE | 2018-08-28 13:56 | REP ---
LEFT ANKLE SERIES: FOUR VIEWS. HISTORY: Previous fracture lateral malleolus. Pain in the medial malleolus. New fall. Comparison radiographs August 25, 2018. FINDINGS: Today's radiographs taken through cast material show an obliquely oriented distal fibular fracture, unchanged in position from the prior study. There is no evidence of tibial fracture. Fine bone detail is obscured by cast material. IMPRESSION: No change from comparison study August 25, 2018. Distal fibular fracture. Electronically Signed by Conrado Schwarz MD 08/28/2018 02:46 P
[2018-08-28 14:03] VITALS: BP 108/67
== END 2018-08-28 14:18 | disposition home or self-care (01) ==
LOC: M ED 12:22
DX: S82.432D Displaced oblique fracture of shaft of left fibula, subsequent encounter for closed fracture with routine healing (principal); W22.8XXA Striking against or struck by other objects, initial encounter; Y92.9 Unspecified place or not applicable; Y93.9 Activity, unspecified; Y99.9 Unspecified external cause status; E78.5 Hyperlipidemia, unspecified; G43.909 Migraine, unspecified, not intractable, without status migrainosus; Z72.0 Tobacco use; Z79.899 Other long term (current) drug therapy; Z88.8 Allergy status to other drugs, medicaments and biological substances
CPT/HCPCS: 73610; 96372; 99283; J1885

== ENCOUNTER → 2018-12-21 | Outpatient (REF) | payer MEDICARE ==
[~2018-12-21] MED LIST changes: +CLON0.5T17 PO; +CLON0.5T8 PO; +NORC1TAB7 PO; +PREV30TA3 PO; +TRAZ-252 PO
[2018-12-21 16:32] LABS: BASO # 0.1 10^3/uL (0.0-0.2); BASO % 0.7 % (0.0-1.0); EOS # 0.1 10^3/uL (0.0-0.5); EOS % 0.9 % (0.0-3.0); HEMATOCRIT 41.3 % (36.0-47.0); HEMOGLOBIN 13.6 g/dl (12.0-15.5); LYMPH # 3.3 10^3/uL (1.5-5.0); LYMPH % 31.7 % (24.0-44.0); MEAN CORPUSCULAR HEMOGLOBIN 30.2 pg (27.0-33.0); MEAN CORPUSCULAR HGB CONC 32.9 g/dl (32.0-36.5); MEAN CORPUSCULAR VOLUME 91.6 fl (80.0-96.0); MONO # 0.7 10^3/uL (0.0-0.8); MONO % 6.9 % (0.0-5.0); NEUTROPHILS # 6.3 10^3/uL (1.5-8.5); NEUTROPHILS % 59.4 % (36.0-66.0); PLATELET COUNT, AUTOMATED 342 10^3/uL (150-450); RED BLOOD COUNT 4.51 10^6/uL (4.00-5.40); WHITE BLOOD COUNT 10.5 10^3/uL (4.0-10.0)
[2018-12-21 16:40] LABS: ALBUMIN 3.8 GM/DL (3.2-5.2); ALT/SGPT 15 U/L (12-78); BILIRUBIN,TOTAL 0.2 MG/DL (0.2-1.0); BLOOD UREA NITROGEN 12 MG/DL (7-18); CALCIUM LEVEL 8.8 MG/DL (8.5-10.1); CARBON DIOXIDE LEVEL 28 MEQ/L (21-32); CHLORIDE LEVEL 108 MEQ/L (98-107); CREATININE FOR GFR 0.95 MG/DL (0.55-1.30); GLOMERULAR FILTRATION RATE > 60.0 (>51); GLUCOSE, FASTING 91 MG/DL (70-100); POTASSIUM SERUM 4.3 MEQ/L (3.5-5.1); SODIUM LEVEL 142 MEQ/L (136-145); TOTAL PROTEIN 6.6 GM/DL (6.4-8.2)
== END ==
LOC: M SFHCPLAZ 13:32
PROVIDERS: ATTEND Family Medicine
DX: R19.7 Diarrhea, unspecified (principal)

== ENCOUNTER → 2018-12-21 | Outpatient (REF) | payer MEDICARE | LOC: M SFHCPLAZ 18:02 | PROVIDERS: ATTEND Family Medicine | DX: R19.7 Diarrhea, unspecified (principal) ==

== ENCOUNTER 2019-05-31 10:34 | Day surgery (SDC) | payer MEDICARE ==
[~2019-05-31] VITALS: Ht 165.1 cm; Wt 53.5 kg
[~2019-05-31 10:34] MED LIST changes: +ALLE4TAB11 PO; +BACL10TA2 PO; +BRIN1TAB3 PO; -BUPR300T34 PO; +BUPR300T92 PO; +CALC1TAB26 PO; +CLON0.5T2 PO; -CLON0.5T8 PO; +EXCETAB33 PO; +KP F1200 PO; +MAGN400C PO; +MUCI600T31 PO; +MULTCAP PO; +NS 1,000 ML IV ONE; +ONDA8TAB10 PO; -ONDA8TAB7 PO; +POTA8CAP10 PO; +QUET100T2 PO; +VITA100066 PO; +ZOLM2.5T14 PO; -ZOLM2.5T2 PO
[2019-05-31] MEDS ORDERED: propofoL 200 MG/20 ML VIAL As Ordered ONE ×2 (11:53→12:54)
[2019-05-31] MEDS ORDERED: LIDOCAINE 2% INJ 100 MG/5 ML SDV (FOR ANES.) As Ordered ONE (11:53)
--- NOTE | 2019-05-31 13:06 | ROOR ---
Patient Name: Juju Moralez Procedure Date: 05/31/2019 12:42 PM Date of : 1960 Age: 59 Room: [facility] Gender: Female Note Status: Finalized Procedure: Total Colonoscopy to Cecum + ileoscopy + Bx Indications: Clinically significant diarrhea of unexplained origin Providers: Lucio Nance MD Referring MD: Lima Chase MD Requesting Provider: Medicines: Monitored Anesthesia Care Complications: No immediate complications. Procedure: Pre-Anesthesia Assessment: - The heart rate, respiratory rate, oxygen saturations, blood pressure, adequacy of pulmonary ventilation, and response to care were monitored throughout the procedure. The Colonoscope was introduced through the anus and advanced to the terminal ileum, with identification of the appendiceal orifice and IC valve. The colonoscopy was performed without difficulty. The patient tolerated the procedure well. The quality of the bowel preparation was excellent. Findings: The perianal and digital rectal examinations were normal. No other significant abnormalities were identified in a careful examination of the remainder of the colon. The terminal ileum appeared normal. Biopsies for histology were taken with a cold forceps from the ascending colon, transverse colon, descending colon and rectosigmoid colon for evaluation of microscopic colitis. The exam was otherwise without abnormality. Impression: - The examined portion of the ileum was normal. - The examination was otherwise normal. - Biopsies were taken with a cold forceps from the ascending colon, transverse colon, descending colon and rectosigmoid colon for evaluation of microscopic colitis. - The exam was otherwise normal to the cecum. Recommendation: - Patient has a contact number available for emergencies. The signs and symptoms of potential delayed complications were discussed with the patient. Return to normal activities tomorrow. Written discharge instructions were provided to the patient. - High fiber diet. - Discharge patient to home. - Continue present medications. - Await pathology results. - Telephone GI clinic for pathology results in 1 week. - Return to referring physician. - The findings and recommendations were discussed with the patient's family. Lucio Nance MD Lucio Nance MD 05/31/2019 1:06:29 PM Electronically signed by Lucio Nance MD Number of Addenda: 0 Note Initiated On: 05/31/2019 12:42 PM Estimated Blood Loss: Estimated blood loss: none.
[2019-05-31 13:37] VITALS: BP 120/82
== END 2019-05-31 13:42 | disposition home or self-care (01) ==
LOC: M OPP 10:34
PROVIDERS: ATTEND Internal Medicine Gastroenterology
DX: R19.7 Diarrhea, unspecified (principal); K52.839 Microscopic colitis, unspecified; K52.831 Collagenous colitis; R01.1 Cardiac murmur, unspecified; K21.9 Gastro-esophageal reflux disease without esophagitis; R12 Heartburn; M19.90 Unspecified osteoarthritis, unspecified site; F41.9 Anxiety disorder, unspecified; F32.9 Major depressive disorder, single episode, unspecified; G43.909 Migraine, unspecified, not intractable, without status migrainosus; R56.9 Unspecified convulsions; Q07.00 Arnold-Chiari syndrome without spina bifida or hydrocephalus; M54.2 Cervicalgia; Z79.899 Other long term (current) drug therapy; Z88.8 Allergy status to other drugs, medicaments and biological substances

== ENCOUNTER 2020-08-01 15:03 | Emergency (ER) | payer MEDICARE ==
[~2020-08-01] VITALS: Ht 170.2 cm; Wt 63.0 kg
[~2020-08-01 15:03] MED LIST changes: +CYCL-707; +CYCL-707 PO; -CYCL10TA; -CYCL10TA PO; -NS 1,000 ML IV ONE
[2020-08-01 15:04] VITALS: BP 167/97
[2020-08-01] MEDS ORDERED: AMIT25TA17 PO (15:20)
[2020-08-01] MEDS ORDERED: BUPR300T92 PO (15:20)
[2020-08-01] MEDS ORDERED: PROC10TA4 PO (15:20)
[2020-08-01] MEDS ORDERED: HYDR2TAB2 PO (15:20)
--- NOTE | 2020-08-01 16:39 | REP ---
INDICATION: fall, hit head. COMPARISON: None. TECHNIQUE: Axial CT images with multiplanar reformations. FINDINGS: No acute bleed or acute large vessel territorial infarct. Ventricles, cisterns and sulci are within normal limits. No mass effect or midline shift. No abnormal fluid collections. Paranasal sinuses and mastoid air cells are clear IMPRESSION: Normal examination. No acute bleed or fracture. <Electronically signed by Moe Chavez > 08/01/20 [id number]
--- NOTE | 2020-08-01 16:41 | REP ---
INDICATION: fall, hit head. COMPARISON: None. TECHNIQUE: Axial CT images with multiplanar reformations. FINDINGS: No facial bones fractures identified. The paranasal sinuses demonstrate a small amount of mucosal thickening of more superior left ethmoid air cells, paranasal sinuses are otherwise clear. Nasal septum deviates slightly to the left. Dentition is unremarkable. IMPRESSION: No facial bones fractures identified. <Electronically signed by Moe Chavez > 08/01/20 0711
--- NOTE | 2020-08-01 16:44 | REP ---
INDICATION: fall. COMPARISON: None. TECHNIQUE: Axial CT images with multiplanar reformations. FINDINGS: No evidence of fracture or subluxation. There is moderate multilevel degenerative disc disease with loss of disc height, and degenerative osteophyte formation at C4-C5-C6 levels. On the sagittal T2 weighted images, no definite limiting canal stenosis. There is [id number] degenerative foraminal narrowing, C4-5 and C5-6 levels appears greater on the right. IMPRESSION: No evidence of C-spine fracture or subluxation. <Electronically signed by Moe Chavez > 08/01/20 1640
== END 2020-08-01 18:46 | disposition left against medical advice (07) ==
LOC: M ED 15:03
DX: S00.33XA Contusion of nose, initial encounter (principal); W01.0XXA Fall on same level from slipping, tripping and stumbling without subsequent striking against object, initial encounter; Y92.009 Unspecified place in unspecified non-institutional (private) residence as the place of occurrence of the external cause; Y93.9 Activity, unspecified; Y99.9 Unspecified external cause status; I10 Essential (primary) hypertension; R00.0 Tachycardia, unspecified; F17.200 Nicotine dependence, unspecified, uncomplicated; Z79.82 Long term (current) use of aspirin; Z79.899 Other long term (current) drug therapy; Z88.8 Allergy status to other drugs, medicaments and biological substances; Z88.6 Allergy status to analgesic agent

== ENCOUNTER 2020-11-25 13:11 | Emergency (ER) | payer MEDICARE ==
[~2020-11-25] VITALS: Ht 167.6 cm; Wt 63.6 kg
[~2020-11-25 13:11] MED LIST changes: +AMIT25TA17 PO; +GABA-283 PO; -GABA-845 PO; +HYDR2TAB2 PO; +PROC10TA4 PO
[2020-11-25 14:45] LABS: BASO # 0.1 10^3/uL (0.0-0.2); BASO % 0.6 % (0.0-1.0); EOS # 0.1 10^3/uL (0.0-0.5); EOS % 0.6 % (0.0-3.0); HEMATOCRIT 33.1 % (36.0-47.0); HEMOGLOBIN 11.2 g/dl (12.0-15.5); LYMPH # 2.9 10^3/uL (1.5-5.0); MEAN CORPUSCULAR HEMOGLOBIN 29.2 pg (27.0-33.0); MEAN CORPUSCULAR HGB CONC 33.8 g/dl (32.0-36.5); MEAN CORPUSCULAR VOLUME 86.2 fl (80.0-96.0); MONO # 1.3 10^3/uL (0.0-0.8); MONO % 12.3 % (2.0-8.0); NEUTROPHILS % 58.2 % (36.0-66.0); PLATELET COUNT, AUTOMATED 340 10^3/uL (150-450); RED BLOOD COUNT 3.84 10^6/uL (4.00-5.40); WHITE BLOOD COUNT 10.3 10^3/uL (4.0-10.0)
--- NOTE | 2020-11-25 14:45 | REP ---
INDICATION: Altered Mental Status. COMPARISON: Comparison CT study of the brain is from August 01, 2020.. TECHNIQUE: Helical scanning is acquired. 5 mm axial images were reformatted. Coronal MPR images were generated. FINDINGS: Preliminary digital physical security manager radiograph is unremarkable. Bone window settings demonstrate intact bony calvarium. The visualized paranasal sinuses are clear. There is mild vascular calcification in the distal internal carotid arteries. No intraorbital abnormality is seen. On soft tissue window settings, there is mild generalized volume loss. There is a focal low-density area inferiorly in the left basal ganglia which may be a small lacunar infarct. This is unchanged. There is mild small-vessel atherosclerotic change in the periventricular white matter of the frontal lobes bilaterally. This is also unchanged. There is no evidence of intracranial hemorrhage. No mass, extra-axial fluid collection, new infarct, or midline shift is seen. IMPRESSION: Vascular calcification mild generalized volume loss. Small vessel changes. Old lacunar infarct left basal ganglia. No acute intracranial abnormality.. <Electronically signed by Isaiah Schwarz > 11/25/20 [id number]
[2020-11-25 15:24] LABS: ALT/SGPT 11 U/L (12-78); BLOOD UREA NITROGEN 13 MG/DL (7-18); CALCIUM LEVEL 8.4 MG/DL (8.8-10.2); CARBON DIOXIDE LEVEL 23 MEQ/L (21-32); CHLORIDE LEVEL 116 MEQ/L (98-107); CK-MB VALUE MASS 3.1 NG/ML (<3.6); CPK CREATINE PHOSPHOKINASE 154 U/L (26-192); CREATININE FOR GFR 0.66 MG/DL (0.55-1.30); GLOMERULAR FILTRATION RATE > 60.0 (>45); GLUCOSE, FASTING 86 MG/DL (70-100); MB/CK RELATIVE INDEX 2.01 (< OR =4); POTASSIUM SERUM 3.5 MEQ/L (3.5-5.1); SODIUM LEVEL 146 MEQ/L (136-145)
[2020-11-25 15:25] LABS: ACETAMINOPHEN LEVEL 2.2 UG/ML (10.0-30.0); ALBUMIN 3.5 GM/DL (3.2-5.2); BILIRUBIN,DIRECT 0.1 MG/DL (0.0-0.2); BILIRUBIN,TOTAL 0.3 MG/DL (0.2-1.0); ETHYL ALCOHOL (ETHANOL) < 0.003 % (0.000-0.010); SALICYLATE LEVEL 3.2 MG/DL (5.0-30.0); THYROID STIMULATING HORMONE 0.466 uIU/ML (0.358-3.740); TOTAL PROTEIN 6.4 GM/DL (6.4-8.2); TROPONIN I < 0.02 NG/ML (< 0.10)
[2020-11-25] MEDS ORDERED: NITROFURANTOIN (MACROBID) 100 MG CAP PO ONE (17:00)
[2020-11-25] MEDS ORDERED: NITR-67 PO (17:05)
[2020-11-25 18:48] VITALS: BP 160/95
[2020-11-25] MEDS ORDERED: HYDR-3490 PO (18:50)
--- NOTE | 2020-11-25 19:25 | ECGEPIP ---
[facility] - ED Test Date: 2020-11-25 Pat Name: JAVID FERRELL Department: Room: - Gender: Female Cardiac Cath Lab Radiology Technologist: MANJINDER : 1960 Requested By: PETRA Culp Order Number: [id number] Reading MD: Rebecca Mcmanus Measurements Intervals [place] Rate: 92 P: 18 [place]: 116 QRS: 31 QRSD: 94 T: 44 QT: 404 QTc: 499 Interpretive Statements Normal sinus rhythm NSTTW abnormalities Prolonged QT increased compared 01/23/17 Electronically Signed on 11-25-2020 19:24:48 EDT by Rebecca Mcmanus
== END 2020-11-25 19:01 | disposition home or self-care (01) ==
LOC: M ED 13:11 → EDBD 13:11 → M ED 19:01
DX: N39.0 Urinary tract infection, site not specified (principal); F11.10 Opioid abuse, uncomplicated; R94.31 Abnormal electrocardiogram [ECG] [EKG]; K21.9 Gastro-esophageal reflux disease without esophagitis; F33.9 Major depressive disorder, recurrent, unspecified; F17.200 Nicotine dependence, unspecified, uncomplicated; Z79.82 Long term (current) use of aspirin; Z79.899 Other long term (current) drug therapy; Z88.8 Allergy status to other drugs, medicaments and biological substances; Z88.1 Allergy status to other antibiotic agents; Z88.5 Allergy status to narcotic agent; Z86.69 Personal history of other diseases of the nervous system and sense organs

== ENCOUNTER 2020-12-22 10:03 | Emergency (ER) | payer MEDICARE ==
[~2020-12-22] VITALS: Ht 170.2 cm; Wt 63.6 kg
[~2020-12-22 10:03] MED LIST changes: +HYDR-3490 PO; +NITR-67 PO
[2020-12-22] MEDS ORDERED: NS 1,000 ML IV SCH (10:25)
[2020-12-22 11:07] VITALS: BP 152/95
[2020-12-22 11:19] LABS: VENOUS BASE EXCESS -0.7 (-2.0-2.0); VENOUS HCO3 23.9 MEQ/L (23.0-27.0); VENOUS O2 SATURATION 77.2 % (60.0-80.0); VENOUS PARTIAL PRESSURE O2 42.1 mmHg (30.0-50.0); VENOUS PH 7.405 UNITS (7.330-7.430); VENOUS STANDARD HCO3 23.5 MEQ/L; VENOUS TOTAL CO2 25.1 MEQ/L (24.0-28.0)
--- NOTE | 2020-12-22 11:19 | REP ---
INDICATION: Altered Mental Status. COMPARISON: PA and lateral chest, 01/23/2017. TECHNIQUE: Upright AP portable chest image was obtained. FINDINGS: The lungs are clear. There is no lobar consolidation or pleural effusion. The heart borders mediastinum and pulmonary vascular pattern are normal. The upper abdominal bowel gas pattern is normal. There are multiple, presumably osteoporotic, compression fractures of the thoracic spine. IMPRESSION: No evidence of acute cardiopulmonary pathology. No significant change. <Electronically signed by Joshua Lagunas > 12/22/20 [id number]
[2020-12-22 11:28] LABS: BASO # 0.1 10^3/uL (0.0-0.2); BASO % 0.6 % (0.0-1.0); EOS # 0.5 10^3/uL (0.0-0.5); EOS % 4.2 % (0.0-3.0); HEMATOCRIT 30.6 % (36.0-47.0); HEMOGLOBIN 10.2 g/dl (12.0-15.5); LYMPH # 2.8 10^3/uL (1.5-5.0); LYMPH % 22.7 % (24.0-44.0); MEAN CORPUSCULAR HEMOGLOBIN 29.1 pg (27.0-33.0); MEAN CORPUSCULAR HGB CONC 33.3 g/dl (32.0-36.5); MEAN CORPUSCULAR VOLUME 87.4 fl (80.0-96.0); MONO # 0.9 10^3/uL (0.0-0.8); MONO % 7.2 % (2.0-8.0); NEUTROPHILS # 8.1 10^3/uL (1.5-8.5); NEUTROPHILS % 64.7 % (36.0-66.0); PLATELET COUNT, AUTOMATED 423 10^3/uL (150-450); WHITE BLOOD COUNT 12.5 10^3/uL (4.0-10.0)
--- NOTE | 2020-12-22 11:31 | REP ---
INDICATION: Altered Mental Status. COMPARISON: CT head without contrast, 11/25/2020. TECHNIQUE: CT examination the brain was performed using standard technique. FINDINGS: There is mild diffuse cerebral atrophy with concomitant ventriculomegaly. There is patchy low density of the periventricular white matter consistent with chronic ischemic white matter disease. There is a chronic lacunar infarction in left basal ganglia. There is no evidence of acute intracranial hemorrhage or infarction. There are no abnormal intracranial masses or mass effects. There is calcific vascular disease of the intracranial portion of both internal carotid arteries. The skull base and calvarium are normal. The visualized extracranial soft tissues are normal. IMPRESSION: 1. Cerebral atrophy. 2. Chronic lacunar infarction in the left basal ganglia. 3. 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 4. No significant change. <Electronically signed by Joshua Lagunas > 12/22/20 1124
[2020-12-22 11:59] LABS: ACETAMINOPHEN LEVEL 4.4 UG/ML (10.0-30.0); ALT/SGPT 17 U/L (12-78); BILIRUBIN,DIRECT < 0.1 MG/DL (0.0-0.2); BILIRUBIN,TOTAL 0.1 MG/DL (0.2-1.0); BLOOD UREA NITROGEN 17 MG/DL (7-18); CALCIUM LEVEL 8.6 MG/DL (8.8-10.2); CARBON DIOXIDE LEVEL 25 MEQ/L (21-32); CHLORIDE LEVEL 110 MEQ/L (98-107); CK-MB VALUE MASS 3.6 NG/ML (<3.6); CPK CREATINE PHOSPHOKINASE 112 U/L (26-192); CREATININE FOR GFR 0.94 MG/DL (0.55-1.30); ETHYL ALCOHOL (ETHANOL) < 0.003 % (0.000-0.010); GLOMERULAR FILTRATION RATE > 60.0 (>45); GLUCOSE, FASTING 86 MG/DL (70-100); MB/CK RELATIVE INDEX 3.21 (< OR =4); POTASSIUM SERUM 3.5 MEQ/L (3.5-5.1); SALICYLATE LEVEL 9.5 MG/DL (5.0-30.0); SODIUM LEVEL 142 MEQ/L (136-145); TOTAL PROTEIN 5.9 GM/DL (6.4-8.2); TROPONIN I < 0.02 NG/ML (< 0.10)
[2020-12-22 12:03] LABS: OSMOLALITY SERUM 294 MOSM/KG (275-295)
--- NOTE | 2020-12-23 16:44 | ECGEPIP ---
[facility] - ED Test Date: 2020-12-22 Pat Name: JAVID FERRELL Department: Room: - Gender: Female Service Order Expediter: braeden : 1960 Requested By: Rebecca Mcmanus Order Number: [id number] Reading MD: Rebecca Mcmanus Measurements Intervals [place] Rate: 83 P: 55 [place]: 134 QRS: 21 QRSD: 78 T: 50 QT: 410 QTc: 481 Interpretive Statements Normal sinus rhythm Nonspecific ST and T wave abnormality Prolonged QT similar 11/25/20 Electronically Signed on 12-23-2020 16:43:49 EDT by Rebecca Mcmanus
== END 2020-12-22 12:56 | disposition left against medical advice (07) ==
LOC: EDBD 10:03 → M ED 10:03
DX: R41.82 Altered mental status, unspecified (principal); Z53.9 Procedure and treatment not carried out, unspecified reason; G31.9 Degenerative disease of nervous system, unspecified; I63.50 Cerebral infarction due to unspecified occlusion or stenosis of unspecified cerebral artery; I65.23 Occlusion and stenosis of bilateral carotid arteries; I10 Essential (primary) hypertension; G43.909 Migraine, unspecified, not intractable, without status migrainosus; F32.9 Major depressive disorder, single episode, unspecified; F41.9 Anxiety disorder, unspecified; Z88.1 Allergy status to other antibiotic agents; Z88.8 Allergy status to other drugs, medicaments and biological substances; Z79.899 Other long term (current) drug therapy

== ENCOUNTER → 2020-12-30 | Outpatient (CLI) | payer MEDICARE ==
[2020-12-30 17:14] LABS: BASO # 0.1 10^3/uL (0.0-0.2); BASO % 0.6 % (0.0-1.0); EOS # 0.7 10^3/uL (0.0-0.5); EOS % 6.2 % (0.0-3.0); HEMATOCRIT 26.7 % (36.0-47.0); LYMPH # 2.9 10^3/uL (1.5-5.0); LYMPH % 27.9 % (24.0-44.0); MEAN CORPUSCULAR HEMOGLOBIN 29.6 pg (27.0-33.0); MEAN CORPUSCULAR HGB CONC 33.7 g/dl (32.0-36.5); MEAN CORPUSCULAR VOLUME 87.8 fl (80.0-96.0); NEUTROPHILS # 5.7 10^3/uL (1.5-8.5); NEUTROPHILS % 54.5 % (36.0-66.0); PLATELET COUNT, AUTOMATED 523 10^3/uL (150-450); RED BLOOD COUNT 3.04 10^6/uL (4.00-5.40); WHITE BLOOD COUNT 10.4 10^3/uL (4.0-10.0)
[2020-12-30 17:50] LABS: ALT/SGPT 30 U/L (12-78); BILIRUBIN,TOTAL 0.1 MG/DL (0.2-1.0); BLOOD UREA NITROGEN 14 MG/DL (7-18); CALCIUM LEVEL 8.9 MG/DL (8.8-10.2); CARBON DIOXIDE LEVEL 24 MEQ/L (21-32); CHLORIDE LEVEL 114 MEQ/L (98-107); CREATININE FOR GFR 0.71 MG/DL (0.55-1.30); GLOMERULAR FILTRATION RATE > 60.0 (>45); GLUCOSE, FASTING 78 MG/DL (70-100); SODIUM LEVEL 145 MEQ/L (136-145); TOTAL PROTEIN 6.1 GM/DL (6.4-8.2)
== END ==
LOC: M PLALAB 14:56
PROVIDERS: ATTEND Family Medicine
DX: D64.9 Anemia, unspecified (principal); R42 Dizziness and giddiness; R41.0 Disorientation, unspecified; R94.31 Abnormal electrocardiogram [ECG] [EKG]

== ENCOUNTER → 2020-12-31 | Outpatient (CLI) | payer MEDICARE ==
[2020-12-31 13:09] LABS: HEMATOCRIT 25.9 % (36.0-47.0); HEMOGLOBIN 8.8 g/dl (12.0-15.5); MEAN CORPUSCULAR HEMOGLOBIN 29.6 pg (27.0-33.0); MEAN CORPUSCULAR VOLUME 87.2 fl (80.0-96.0); PLATELET COUNT, AUTOMATED 490 10^3/uL (150-450); RED BLOOD COUNT 2.97 10^6/uL (4.00-5.40); WHITE BLOOD COUNT 12.9 10^3/uL (4.0-10.0)
[2020-12-31 15:33] LABS: PERCENT SATURATION 6.7 % (13.2-45.0)
[2020-12-31 15:50] LABS: FOLATE 6.4 NG/ML
== END ==
LOC: M PLALAB 11:25
PROVIDERS: ATTEND Family Medicine
DX: D64.9 Anemia, unspecified (principal)

== ENCOUNTER → 2021-01-07 | Outpatient (CLI) | payer MEDICARE | LOC: M PLALAB 08:25 | PROVIDERS: ATTEND Family Medicine | DX: D50.9 Iron deficiency anemia, unspecified (principal); Z53.9 Procedure and treatment not carried out, unspecified reason ==

== ENCOUNTER → 2021-01-09 | Outpatient (REF) | payer MEDICARE | LOC: M LAB REF 12:27 | PROVIDERS: ATTEND Family Medicine | DX: D50.9 Iron deficiency anemia, unspecified (principal) ==

== ENCOUNTER → 2021-01-16 | Outpatient (CLI) | payer MEDICARE ==
[2021-01-16 13:43] LABS: HEMATOCRIT 34.5 % (36.0-47.0); HEMOGLOBIN 10.8 g/dl (12.0-15.5); MEAN CORPUSCULAR HEMOGLOBIN 28.4 pg (27.0-33.0); MEAN CORPUSCULAR HGB CONC 31.3 g/dl (32.0-36.5); MEAN CORPUSCULAR VOLUME 90.8 fl (80.0-96.0); PLATELET COUNT, AUTOMATED 542 10^3/uL (150-450); WHITE BLOOD COUNT 9.1 10^3/uL (4.0-10.0)
== END ==
LOC: M PLALAB 11:36
PROVIDERS: ATTEND Family Medicine
DX: D50.9 Iron deficiency anemia, unspecified (principal)

== ENCOUNTER → 2021-02-20 | Outpatient (CLI) | payer MEDICARE ==
[2021-02-20 13:44] LABS: HEMATOCRIT 35.5 % (36.0-47.0); HEMOGLOBIN 11.3 g/dl (12.0-15.5); MEAN CORPUSCULAR HEMOGLOBIN 29.6 pg (27.0-33.0); MEAN CORPUSCULAR HGB CONC 31.8 g/dl (32.0-36.5); MEAN CORPUSCULAR VOLUME 92.9 fl (80.0-96.0); PLATELET COUNT, AUTOMATED 409 10^3/uL (150-450); RED BLOOD COUNT 3.82 10^6/uL (4.00-5.40)
[2021-02-20 14:25] LABS: BLOOD UREA NITROGEN 17 MG/DL (7-18); CALCIUM LEVEL 9.3 MG/DL (8.8-10.2); CARBON DIOXIDE LEVEL 25 MEQ/L (21-32); CHLORIDE LEVEL 108 MEQ/L (98-107); CREATININE FOR GFR 0.74 MG/DL (0.55-1.30); FERRITIN 16 NG/ML (8-252); GLOMERULAR FILTRATION RATE > 60.0 (>45); GLUCOSE, FASTING 87 MG/DL (70-100); IRON (FE) 21 UG/DL (50-170); PERCENT SATURATION 7.9 % (13.2-45.0); POTASSIUM SERUM 4.3 MEQ/L (3.5-5.1); SODIUM LEVEL 140 MEQ/L (136-145); TOTAL IRON BINDING CAPACITY 265 UG/DL (250-450)
== END ==
LOC: M PLALAB 09:41
PROVIDERS: ATTEND Family Medicine
DX: D50.9 Iron deficiency anemia, unspecified (principal); E87.6 Hypokalemia

== ENCOUNTER → 2021-03-07 | Outpatient (CLI) | payer MEDICARE ==
[2021-03-07 14:12] LABS: BLOOD UREA NITROGEN 18 MG/DL (7-18); CALCIUM LEVEL 9.6 MG/DL (8.8-10.2); CARBON DIOXIDE LEVEL 25 MEQ/L (21-32); CHLORIDE LEVEL 109 MEQ/L (98-107); CREATININE FOR GFR 0.89 MG/DL (0.55-1.30); GLOMERULAR FILTRATION RATE > 60.0 (>45); GLUCOSE, FASTING 88 MG/DL (70-100); POTASSIUM SERUM 4.6 MEQ/L (3.5-5.1); SODIUM LEVEL 141 MEQ/L (136-145)
== END ==
LOC: M PLALAB 11:41
PROVIDERS: ATTEND Family Medicine
DX: E87.6 Hypokalemia (principal)

== ENCOUNTER 2022-04-21 12:09 | Emergency (ER) | payer MEDICARE ==
[~2022-04-21] VITALS: Ht 152.4 cm; Wt 45.0 kg
[~2022-04-21 12:09] MED LIST changes: +EXCETAB32 PO; -EXCETAB33 PO; -LATU40TA PO; +LATU40TA2 PO; +ONDA-84 PO; -ONDA8TAB10 PO; -PROC10TA4 PO; +PROC10TA5 PO
[2022-04-21 12:11] VITALS: BP 160/80
[2022-04-21] MEDS ORDERED: MORP30TASA (12:42)
[2022-04-21] MEDS ORDERED: SERT50TA29 (12:42)
[2022-04-21 15:51] LABS: BASO # 0.1 10^3/uL (0.0-0.2); BASO % 0.5 % (0.0-1.0); EOS # 0.1 10^3/uL (0.0-0.5); HEMATOCRIT 27.9 % (36.0-47.0); HEMOGLOBIN 8.6 g/dl (12.0-15.5); LYMPH # 3.2 10^3/uL (1.5-5.0); LYMPH % 29.4 % (24.0-44.0); MEAN CORPUSCULAR HEMOGLOBIN 23.6 pg (27.0-33.0); MEAN CORPUSCULAR HGB CONC 30.8 g/dl (32.0-36.5); MEAN CORPUSCULAR VOLUME 76.4 fl (80.0-96.0); MONO % 17.3 % (2.0-8.0); NEUTROPHILS # 5.7 10^3/uL (1.5-8.5); NEUTROPHILS % 51.4 % (36.0-66.0); PLATELET COUNT, AUTOMATED 417 10^3/uL (150-450); RED BLOOD COUNT 3.65 10^6/uL (4.00-5.40)
[2022-04-21 16:08] LABS: ERYTHROCYTE SEDIMENTATION RATE 38 mm/hr (0-30)
[2022-04-21 16:14] LABS: BLOOD UREA NITROGEN 25 MG/DL (9-23); CALCIUM LEVEL 9.3 MG/DL (8.3-10.6); CARBON DIOXIDE LEVEL 28 MMOL/L (20-31); CHLORIDE LEVEL 98 MMOL/L (98-107); CREATININE FOR GFR 0.52 MG/DL (0.55-1.30); GLOMERULAR FILTRATION RATE > 60.0 (>45); GLUCOSE, FASTING 88 MG/DL (74-106); POTASSIUM SERUM 4.4 MMOL/L (3.5-5.1); SODIUM LEVEL 135 MMOL/L (136-145)
[2022-04-21 16:26] LABS: MONO # 1.9 10^3/uL (0.0-0.8)
[2022-04-21] MEDS ORDERED: NS 500 ML IV ONE (16:45)
[2022-04-21] MEDS ORDERED: ISOVUE-370 76% 100ML VIAL As Ordered ONE (16:58)
[2022-04-21] MEDS ORDERED: ceFAZolin SOD 2 GM in IV 1 EA IV ONE (17:05)
[2022-04-21 17:12] LABS: ALBUMIN 3.7 G/DL (3.2-5.2); ALKALINE PHOSPHATASE 133 U/L (46-116); ALT/SGPT 28 U/L (7.0-40); AST/SGOT 64 U/L (<34); BILIRUBIN,DIRECT 0.1 MG/DL (<0.4); BILIRUBIN,TOTAL 0.4 MG/DL (0.3-1.2); TOTAL PROTEIN 6.9 G/DL (5.7-8.2)
[2022-04-21] MEDS ORDERED: CEPH500C PO (18:46)
== END 2022-04-21 19:19 | disposition left against medical advice (07) ==
LOC: M ED 12:09
DX: Z53.21 Procedure and treatment not carried out due to patient leaving prior to being seen by health care provider (principal)
CPT/HCPCS: 71260; 73630; 74177; 80048; 80076; 83605; 83880; 85025; 85652; 86140; 87040; 99283; J0690; Q9967

== ENCOUNTER → 2022-06-24 | Outpatient (REF) ==
[~2022-06-24] MED LIST changes: +CEPH500C PO; +MORP30TASA; +SERT50TA29
== END ==
LOC: M LAB 10:31